=== PATIENT | female | born 1990 | race Caucasian/White ===

== ENCOUNTER 2016-12-03 16:37 | Emergency (ER) | payer SELFPAY ==
[~2016-12-03] VITALS: Ht 167.6 cm; Wt 104.5 kg
[~2016-12-03 16:37] MED LIST: PNV1TABL54 PO
[2016-12-03 16:38] VITALS: BP 138/89
[2016-12-03] MEDS ORDERED: TRAM50TA4 PO (16:45)
[2016-12-03] MEDS ORDERED: AMOX500T2 PO (16:45)
== END 2016-12-03 16:45 | disposition left against medical advice (07) ==
LOC: EEVIPCON 16:41 → EMS 16:41
DX: Z53.21 Procedure and treatment not carried out due to patient leaving prior to being seen by health care provider (principal)

== ENCOUNTER 2017-11-07 13:30 | Emergency (ER) | payer OTHER, SELFPAY ==
[~2017-11-07] VITALS: Ht 167.6 cm; Wt 100.0 kg
[~2017-11-07 13:30] MED LIST changes: +AMOX500T2 PO; -PNV1TABL54 PO; +TRAM50TA4 PO
[2017-11-07] MEDS ORDERED: ESCI10TA PO (13:55)
[2017-11-07] MEDS ORDERED: HYDROCODONE/ACETAMINOPHEN 5-325 MG TABLET PO ONE (16:00)
[2017-11-07] MEDS ORDERED: POVIDONE-IODINE 10% 15 ML SOLUTION UD TP ONE (16:00)
[2017-11-07] MEDS ORDERED: LIDOCAINE HCL 1% 10 ML VIAL INJ ONE (16:00)
[2017-11-07] MEDS ORDERED: BACITRACIN 0.9 GM PACKET OINTMENT TP ONE (16:00)
[2017-11-07 17:34] VITALS: BP 137/75
== END 2017-11-07 17:36 | disposition home or self-care (01) ==
LOC: EMS 13:32
DX: S61.412A Laceration without foreign body of left hand, initial encounter (principal); F41.9 Anxiety disorder, unspecified; F32.9 Major depressive disorder, single episode, unspecified; Z79.899 Other long term (current) drug therapy; Z88.0 Allergy status to penicillin; W26.8XXA Contact with other sharp object(s), not elsewhere classified, initial encounter; Y93.89 Activity, other specified; Y92.89 Other specified places as the place of occurrence of the external cause; Y99.8 Other external cause status
CPT/HCPCS: 12001; 99283

== ENCOUNTER 2017-11-09 13:29 | Emergency (ER) | payer OTHER ==
[~2017-11-09] VITALS: Ht 167.6 cm; Wt 100.0 kg
[~2017-11-09 13:29] MED LIST changes: -AMOX500T2 PO; +ESCI10TA PO; -TRAM50TA4 PO
[2017-11-09 14:03] VITALS: BP 128/94
== END 2017-11-09 14:38 | disposition home or self-care (01) ==
LOC: EMS 13:32
DX: Z48.00 Encounter for change or removal of nonsurgical wound dressing (principal); Z88.0 Allergy status to penicillin
CPT/HCPCS: 99281; 99282

== ENCOUNTER 2017-11-13 19:04 | Emergency (ER) | payer OTHER | END 2017-11-13 19:28 | disposition left against medical advice (07) | LOC: EMS 19:05 | DX: Z53.21 Procedure and treatment not carried out due to patient leaving prior to being seen by health care provider (principal) ==

== ENCOUNTER 2023-09-02 04:42 | Emergency (ER) | payer MEDICAID, OTHER ==
[~2023-09-02] VITALS: Ht 170.2 cm; Wt 86.0 kg
[~2023-09-02 04:42] MED LIST changes: +ESCI-8 PO; -ESCI10TA PO
[2023-09-02 04:46] VITALS: TEMP 98
[2023-09-02 05:51] VITALS: BP 123/80; PULSE 89; RESP 20
[2023-09-02] MEDS: TraMADol HCL 50 MG TABLET PO ONE (06:56)
[2023-09-02] MEDS: CLINDAMYCIN PHOS 150 MG/ML 4 ML VIAL IM ONE (07:15)
== END 2023-09-02 10:01 | disposition left against medical advice (07) ==
LOC: EMS 04:42
DX: M79.644 Pain in right finger(s) (principal); F41.9 Anxiety disorder, unspecified; F32.A Depression, unspecified; F17.210 Nicotine dependence, cigarettes, uncomplicated; F12.90 Cannabis use, unspecified, uncomplicated; Z98.890 Other specified postprocedural states
CPT/HCPCS: 99283; 73140; J3490

== ENCOUNTER 2024-02-10 23:29 | Emergency (ER) | payer MEDICAID ==
[~2024-02-10] VITALS: Ht 167.6 cm; Wt 90.9 kg
[2024-02-10 23:43] VITALS: BP 130/78; PULSE 81; RESP 16; TEMP 98.2; O2SAT 95
[2024-02-11 00:39] LABS: BASOPHILS % (AUTO) 0.9 % (0.0-2.0); EOSINOPHILS % (AUTO) 0.7 % (1.0-6.0); HEMATOCRIT 38.2 % (36-46); LYMPHOCYTES # (AUTO) 1.3 K/uL (1.0-4.8); LYMPHOCYTES % (AUTO) 26.2 % (22.0-44.0); MEAN CORPUSCULAR HEMOGLOBIN 31.4 pg (26.0-34.0); MEAN CORPUSCULAR HGB CONC 34.1 G/dL (31.0-37.0); MEAN CORPUSCULAR VOLUME 92 fL (80-100); MONOCYTES # (AUTO) 0.4 K/uL (0.1-1.0); MONOCYTES % (AUTO) 8.4 % (2.0-9.0); NEUTROPHILS # (AUTO) 3.1 K/uL (1.8-7.7); NEUTROPHILS % (AUTO) 63.8 % (40.0-70.0); PLATELET COUNT (AUTO) 237 K/uL (150-450); RED BLOOD CELL COUNT(AUTO) 4.14 MIL/uL (4.00-5.20); RED CELL DISTRIBUTION WIDTH 14.3 % (11.5-14.5); WHITE BLOOD COUNT (AUTO) 4.9 K/uL (4.5-11.0)
[2024-02-11 01:18] LABS: APPEARANCE,URINE HAZY (CLEAR); BILIRUBIN,URINE NEGATIVE (NEGATIVE); COLOR,URINE YELLOW (YELLOW); GLUCOSE, URINE (UA) NEGATIVE (NEGATIVE); KETONES,URINE NEGATIVE (NEGATIVE); LEUKOCYTE ESTERASE ,URINE SMALL (NEGATIVE); NITRATE,URINE NEGATIVE (NEGATIVE); OCCULT BLOOD,URINE NEGATIVE (NEGATIVE); PH,URINE 6.5 (5.0-8.0); PROTEIN,URINE 30-70 mg/dL (NEGATIVE); SPECIFIC GRAVITIY, URINE 1.031 (1.003-1.030); UROBILINOGEN,URINE <=1.0 mg/dL (<=1.0)
[2024-02-11 01:29] LABS: ANION GAP 10 mmol/L (8-16); CALCIUM, TOTAL 9.1 mg/dL (8.8-10.5); CARBON DIOXIDE 29 mmol/L (22-29); CHLORIDE 102 mmol/L (98-107); CREATININE 0.71 mg/dL (0.60-1.30); GLOMERULAR FILTR. RATE CALC > 60 mL/min (>60); GLUCOSE,RANDOM 106 mg/dL (70-110); POTASSIUM 4.4 mmol/L (3.5-5.1); SODIUM SERUM 141 mmol/L (136-145); UREA NITROGEN, BLOOD 16 mg/dL (7-18)
[2024-02-11 01:54] LABS: BACTERIA,URINE Many /HPF (None Seen); RBC,URINE 0-2 /HPF (0-2); SQUAMOUS EPITHELIAL CELL,UR Moderate /LPF (None Seen)
[2024-02-11 01:55] LABS: HCG,QUANTITATIVE 85711 mIU/mL (0-6); LIPASE 41 U/L (16-77)
== END 2024-02-11 05:28 | disposition home or self-care (01) ==
LOC: EMS 23:29
DX: O26.891 Other specified pregnancy related conditions, first trimester (principal); O99.331 Smoking (tobacco) complicating pregnancy, first trimester; F17.210 Nicotine dependence, cigarettes, uncomplicated; F12.90 Cannabis use, unspecified, uncomplicated; F15.10 Other stimulant abuse, uncomplicated; Z3A.10 10 weeks gestation of pregnancy; Z88.0 Allergy status to penicillin
CPT/HCPCS: 76801; 80048; 81001; 83690; 84702; 85025; 87086; 87186; 99284

== ENCOUNTER 2024-03-14 02:45 | Emergency (ER) | payer MEDICAID ==
[~2024-03-14] VITALS: Ht 167.6 cm; Wt 90.9 kg
[2024-03-14 03:01] VITALS: TEMP 98.3
[2024-03-14 03:16] VITALS: BP 117/63; PULSE 95; RESP 20; O2SAT 99
== END 2024-03-14 04:16 | disposition home or self-care (01) ==
LOC: EMS 02:45
DX: S61.012A Laceration without foreign body of left thumb without damage to nail, initial encounter (principal); F41.9 Anxiety disorder, unspecified; F32.A Depression, unspecified; F12.90 Cannabis use, unspecified, uncomplicated; F15.90 Other stimulant use, unspecified, uncomplicated; F17.210 Nicotine dependence, cigarettes, uncomplicated; Z98.890 Other specified postprocedural states; Z88.0 Allergy status to penicillin; W26.8XXA Contact with other sharp object(s), not elsewhere classified, initial encounter; Y93.89 Activity, other specified; Y92.89 Other specified places as the place of occurrence of the external cause; Y99.8 Other external cause status
CPT/HCPCS: 12001; 99282; Z7502

== ENCOUNTER 2024-07-29 01:27 | Emergency (ER) | payer SELFPAY ==
[~2024-07-29] VITALS: Ht 167.6 cm; Wt 95.5 kg
[2024-07-29 01:42] VITALS: TEMP 98
[2024-07-29] MEDS ORDERED: DOXY-354 PO (02:54)
[2024-07-29 03:14] VITALS: BP 118/76; PULSE 76; RESP 18; O2SAT 100
== END 2024-07-29 05:11 | disposition home or self-care (01) ==
LOC: EMS 01:27
DX: S61.213A Laceration without foreign body of left middle finger without damage to nail, initial encounter (principal); F12.90 Cannabis use, unspecified, uncomplicated; F17.210 Nicotine dependence, cigarettes, uncomplicated; W26.0XXA Contact with knife, initial encounter; Y93.89 Activity, other specified; Y92.89 Other specified places as the place of occurrence of the external cause; Y99.8 Other external cause status
CPT/HCPCS: 12001; 99283

== ENCOUNTER 2025-05-10 01:34 | Emergency (ER) | payer MEDICAID ==
[~2025-05-10] VITALS: Ht 167.6 cm; Wt 109.1 kg
[~2025-05-10 01:34] MED LIST changes: +DOXY-354 PO; -ESCI-8 PO
[2025-05-10 01:42] VITALS: BP 127/65; PULSE 77; RESP 16; TEMP 98.1; O2SAT 100
[2025-05-10] MEDS: CEPHALEXIN MONOHYDRATE 500 MG CAPSULE PO ONE (03:33)
[2025-05-10] MEDS ORDERED: CEPH-558 PO (03:39)
== END 2025-05-10 04:29 | disposition home or self-care (01) ==
LOC: EMS 01:34
DX: O26.892 Other specified pregnancy related conditions, second trimester (principal); T23.201A Burn of second degree of right hand, unspecified site, initial encounter; F41.9 Anxiety disorder, unspecified; F32.A Depression, unspecified; F17.210 Nicotine dependence, cigarettes, uncomplicated; F12.90 Cannabis use, unspecified, uncomplicated; F15.90 Other stimulant use, unspecified, uncomplicated; Z98.890 Other specified postprocedural states; Z79.899 Other long term (current) drug therapy; Z3A.00 Weeks of gestation of pregnancy not specified; Y92.89 Other specified places as the place of occurrence of the external cause
CPT/HCPCS: 99283